=== PATIENT | female | born 1975 | race African-American/Black ===

== ENCOUNTER 2021-09-23 07:28 | Outpatient (CLI) | payer BC | END 2021-09-23 07:29 | disposition home or self-care (01) | LOC: CSHULT 07:28 | PROVIDERS: ATTEND Internal Medicine Gastroenterology | DX: R79.89 Other specified abnormal findings of blood chemistry (principal); M06.9 Rheumatoid arthritis, unspecified | CPT/HCPCS: 76705 ==

== ENCOUNTER → 2021-10-13 | Day surgery (SDC) | payer BC ==
[~2021-10-13] MED LIST: Lidocaine 1% PF 5 ML VIAL ONE; Sodium Bicarbonate 2.5 MEQ/5 ML VIAL ONE
== END | disposition home or self-care (01) ==
LOC: CSHULT 09:34
PROVIDERS: ATTEND Physician Assistant Medical
PROC: 0FB23ZX Excision of Left Lobe Liver, Percutaneous Approach, Diagnostic (ICD-10-PCS; principal; 2021-10-13)
DX: K75.9 Inflammatory liver disease, unspecified (principal); M06.9 Rheumatoid arthritis, unspecified; Z87.891 Personal history of nicotine dependence
CPT/HCPCS: 47000; 76942; 88307; 88313; 88325

== ENCOUNTER 2021-11-28 09:35 | Outpatient (CLI) | payer BC ==
[~2021-11-28 09:35] MED LIST changes: +Gadobenate Dimeglumine 529 MG/1 ML (20ML VIAL) ONE; -Lidocaine 1% PF 5 ML VIAL ONE; -Sodium Bicarbonate 2.5 MEQ/5 ML VIAL ONE
== END 2021-11-28 09:36 | disposition home or self-care (01) ==
LOC: CSHMRI 09:35
PROVIDERS: ATTEND Physician Assistant Medical
DX: R79.89 Other specified abnormal findings of blood chemistry (principal)
CPT/HCPCS: 74183; A9577

== ENCOUNTER 2022-09-08 14:51 | Emergency (ER) | payer BC, SELFPAY ==
[2022-09-08] MEDS ORDERED: Ketorolac Tromethamine 30 MG/ML VIAL ONE (17:25)
== END 2022-09-08 17:38 | disposition home or self-care (01) ==
LOC: CSHERS 14:51
DX: M79.672 Pain in left foot (principal)
CPT/HCPCS: 96372; J1885